=== PATIENT | female | born 1995 | race Native Hawaiian/Other Pacific Islander ===

== ENCOUNTER 2017-02-26 01:53 | Emergency (ER) | payer OTHER ==
[~2017-02-26] VITALS: Ht 162.6 cm; Wt 63.5 kg
== END 2017-02-26 03:12 | disposition home or self-care (01) ==
LOC: ED 01:53
DX: M54.9 Dorsalgia, unspecified (principal); K52.9 Noninfective gastroenteritis and colitis, unspecified; R11.2 Nausea with vomiting, unspecified; R19.7 Diarrhea, unspecified
CPT/HCPCS: 81000; 87086; 87088; 99282

== ENCOUNTER 2018-08-22 13:44 | Outpatient (CLI) | payer OTHER ==
[2018-08-22 14:04] LABS: PLATELET COUNT 341 K/uL (152-353)
[2018-08-22 14:41] LABS: POTASSIUM 3.7 mmol/L (3.6-5.2)
== END 2018-08-22 19:42 | disposition home or self-care (01) ==
LOC: RAD 13:44
PROVIDERS: Family Medicine
DX: R01.1 Cardiac murmur, unspecified (principal); M25.473 Effusion, unspecified ankle; R82.998 Other abnormal findings in urine
CPT/HCPCS: 36415; 80053; 81000; 84439; 84443; 85027; 87086; 87088; 93005

== ENCOUNTER 2022-01-16 23:48 | Emergency (ER) | payer OTHER ==
[~2022-01-16] VITALS: Ht 162.6 cm; Wt 63.5 kg
[2022-01-17 00:03] VITALS: BP 118/79; TEMP 98.8
== END 2022-01-17 00:03 | disposition home or self-care (01) ==
LOC: ED 23:48
DX: R06.02 Shortness of breath (principal); T60.91XA Toxic effect of unspecified pesticide, accidental (unintentional), initial encounter; Y92.511 Restaurant or cafe as the place of occurrence of the external cause
CPT/HCPCS: 99282

== ENCOUNTER 2022-07-18 23:45 | Emergency (ER) | payer OTHER ==
[~2022-07-18] VITALS: Ht 162.6 cm; Wt 63.5 kg
[2022-07-18 23:50] VITALS: BP 103/59; TEMP 89.2
== END 2022-07-19 00:42 | disposition left against medical advice (07) ==
LOC: ED 23:45
DX: K56.7 Ileus, unspecified (principal); R10.11 Right upper quadrant pain; R10.31 Right lower quadrant pain; E86.0 Dehydration; Z53.29 Procedure and treatment not carried out because of patient's decision for other reasons
CPT/HCPCS: 99282

== ENCOUNTER 2022-11-19 14:06 | Emergency (ER) | payer OTHER ==
[~2022-11-19] VITALS: Ht 162.6 cm; Wt 67.6 kg
[2022-11-19 14:13] VITALS: BP 133/77; TEMP 98.6
== END 2022-11-19 15:03 | disposition home or self-care (01) ==
LOC: ED 14:06
PROC: 0HQ1XZZ Repair Face Skin, External Approach (ICD-10-PCS; principal; 2022-11-19)
DX: S01.112A Laceration without foreign body of left eyelid and periocular area, initial encounter (principal); S09.90XA Unspecified injury of head, initial encounter; W19.XXXA Unspecified fall, initial encounter
CPT/HCPCS: 90471; 90715; 99283